=== PATIENT | male | born 1970 | race Caucasian/White ===

== ENCOUNTER 2017-11-23 15:44 | Emergency (ER) | payer MEDICAID ==
[~2017-11-23] VITALS: Ht 182.9 cm; Wt 116.7 kg
[~2017-11-23 15:44] MED LIST: ASPI81TA82 PO; HYDR12.56 PO
[2017-11-23 15:53] VITALS: BP 154/90; PULSE 108; RESP 16; TEMP 99.6; O2SAT 95
[2017-11-23] MEDS ORDERED: ASPI81CH6 CHEW (16:10)
[2017-11-23] MEDS ORDERED: HYDR12.57 PO (16:10)
--- NOTE | 2017-11-23 16:13 | PD ---
HPI Chief Complaint: Dizziness Time Seen by Provider: 16:02 Travel History International Travel<30 days: No Contact w/Intl Traveler<30days: No Traveled to known affect area: No History of Present Illness HPI 46-year-old male complains of hyperventilating and dizziness. Patient states that the symptoms started prior to arrival. Patient states that he was breathing fast and feeling dizzy at that time. Patient denies any headache. Patient denies any visual change. Patient denies any chest pain or shortness of breath. Patient denies abdominal pain. Patient denies any focal weakness or numbness extremity. Patient is feeling much better now. Patient has history of hypertension. Patient is taking HCTZ. Patient denies any alcohol or illicit drug abuse. 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") Allergies-Medications (Allergen,Severity, Reaction): Coded Allergies: shellfish derived (Unverified Allergy, Severe, SWELLING /HIVES, 11/23/17) Reported Meds & Prescriptions Reported Meds & Active Scripts Active Review of Systems General / Constitutional: No: Fever Eyes: No: Visual changes HENT: Positive: Lightheadedness, No: Headaches Cardiovascular: No: Chest Pain or Discomfort Respiratory: No: Shortness of Breath Gastrointestinal: No: Abdominal Pain Genitourinary: No: Dysuria Musculoskeletal: No: Pain Skin: No Rash Neurologic: No: Weakness Psychiatric: No: Depression Endocrine: No: Polydipsia Hematologic/Lymphatic: No: Easy Bruising Physical Exam Narrative GENERAL: Well-nourished, well-developed patient. SKIN: Focused skin assessment warm/dry. HEAD: Normocephalic. EYES: No scleral icterus. No injection or drainage. NECK: Supple, trachea midline. No JVD or lymphadenopathy. CARDIOVASCULAR: Regular rate and rhythm without murmurs, gallops, or rubs. RESPIRATORY: Breath sounds equal bilaterally. No accessory muscle use. GASTROINTESTINAL: Abdomen soft, non-tender, nondistended. MUSCULOSKELETAL: No cyanosis, or edema. BACK: Nontender without obvious deformity. No CVA tenderness. Neurologic exam normal. Data Data Last Documented VS Vital Signs Date Time Temp Pulse Resp B/P (MAP) Pulse Ox O2 Delivery O2 Flow Rate FiO2 11/23/17 15:53 99.6 108 16 154/90 (111) 95 MDM Medical Decision Making Medical Screen Exam Complete: Yes Emergency Medical Condition: Yes Differential Diagnosis Differential diagnosis including acute anxiety panic attack, hyperventilation, viral syndrome. Narrative Course 46-year-old male with transient hypoventilation and dizziness. Patient is asymptomatic now. Vital signs stable. Physical exam benign. Diagnosis Primary Impression: Acute anxiety Patient Instructions: General Instructions Additional Instructions: Follow-up as needed. Med/Other Pt SpecificInfo: No Change to Meds Disposition: 01 DISCHARGE HOME Condition: Stable Hernan Bruner MD Nov 23, 2017 16:13
== END 2017-11-23 16:21 | disposition home or self-care (01) ==
LOC: PHED 15:44
DX: F41.9 Anxiety disorder, unspecified (principal); R06.4 Hyperventilation; I10 Essential (primary) hypertension; J44.9 Chronic obstructive pulmonary disease, unspecified; R42 Dizziness and giddiness; Z79.82 Long term (current) use of aspirin
CPT/HCPCS: 99283